=== PATIENT | female | born 1985 | race Caucasian/White ===

== ENCOUNTER → 2023-02-21 09:20 | Outpatient (CLI) | payer OTHER, SELFPAY ==
--- NOTE | ~2023-02-21 | CT_ITS ---
CT of the Abdomen and Pelvis: Indication: Renal cyst Technique: 2.5 mm axial scans were obtained through the abdomen and pelvis prior to and following in travenous administration of 100 cc of Omnipaque 350. Dose reduction technique was used on this scan b y utilizing automated exposure control and iterative reconstruction technique. The dose-length produc t (DLP) was 618.12 mGy-cm. Findings: Scans through the lung bases are unremarkable. There is an 11 mm hepatic lobe lesion, hypodense on precontrast images, with diffuse postcontrast enh ancement, suggestive of flash filling hemangioma. The spleen, pancreas, gallbladder, adrenals and rig ht kidney are within normal limits. There is a 9 mm left renal cyst, with probable tiny calcification /stone within the cyst. No evidence of aortic aneurysm. No lymphadenopathy. No bowel obstruction or bowel wall thickening. There is no evidence to suggest acute appendicitis. Images through the pelvis were performed. Urinary bladder unremarkable. 2.2 cm right adnexal cyst pre sent. No other adnexal mass seen. No ascites. Impression: 9 mm left renal cyst with tiny calcification/stone within the cyst. 11 mm probable flash filling hepatic hemangioma. Reviewed, dictated and finalized at [facility]. E DELIVERY SUPERVISOR Impression: 9 mm left renal cyst with tiny calcification/stone within the cyst. 11 mm probable flash filling hepatic hemangioma.
== END ==
DX: N28.1 Cyst of kidney, acquired (principal); K76.9 Liver disease, unspecified
CPT/HCPCS: 74178; Q9967

== ENCOUNTER 2024-02-25 14:55 | Outpatient (CLI) | payer OTHER, SELFPAY ==
--- NOTE | ~2024-02-25 | MM_ITS ---
EXAMINATION: MM screening lizzie BI w desire HISTORY: Screening mammogram TECHNIQUE: Craniocaudal and mediolateral oblique 3-D tomosynthesis images were obtained and synthetic 2-D images were generated. CAD analysis was submitted and interpreted. COMPARISON: No prior mammogram is available for comparison at this institution. BREAST PARENCHYMAL COMPOSITION:Dense: The breasts are extremely dense, which lowers the sensitivity o f mammography. FINDINGS: No suspicious mass, calcification, or architectural distortion are identified in either carol ast to suggest malignancy. There has been no suspicious interval change. IMPRESSION: No mammographic evidence of malignancy. Recommend routine screening mammography in one year. BI-RADS Category 1: Negative Reviewed, dictated and finalized at location . RVOIR ENGINEER
== END 2024-02-25 14:56 | disposition home or self-care (01) ==
LOC: ANHIMG 14:56
PROVIDERS: Visit Provider Obstetrics & Gynecology
DX: Z12.31 Encounter for screening mammogram for malignant neoplasm of breast (principal)
CPT/HCPCS: 77063; 77067

== ENCOUNTER 2024-04-27 08:46 | Outpatient (CLI) | payer OTHER, SELFPAY ==
--- NOTE | ~2024-04-27 | MR_ITS ---
EXAMINATION: MR abdomen wo/w con DATE: 04/27/2024 09:42 INDICATION: Renal cyst. TECHNIQUE: Magnetic resonance imaging (MRI) of the abdomen was performed without and with 12 mL Multi Andria intravenous contrast. COMPARISON: CT abdomen and pelvis 02/21/2023 FINDINGS: There is a stable 10 mm hyperenhancing mass in right hepatic lobe, likely a hemangioma. The gallbladd er, spleen, pancreas, adrenal glands, and right kidney are normal. There is an 8 mm cyst in left kidn ey. The prior CT demonstrated thin wall calcification. There are no dilated loops of bowel. There are no pathologically enlarged lymph nodes. There is no ascites. IMPRESSION: 1. Benign 8 mm Bosniak II cystic lesion of left kidney, stable from 02/21/2023. Reviewed, dictated and finalized at location B. R HELPER
== END 2024-04-27 08:47 | disposition home or self-care (01) ==
LOC: MICIMG 08:47
PROVIDERS: Visit Provider Urology
DX: N28.1 Cyst of kidney, acquired (principal)
CPT/HCPCS: 74183; A9577

== ENCOUNTER 2025-03-09 14:16 | Outpatient (CLI) | payer OTHER, SELFPAY ==
--- NOTE | ~2025-03-09 | MM_ITS ---
EXAMINATION: MM screening lizzie BI w desire HISTORY: Screening. TECHNIQUE: Craniocaudal and mediolateral oblique 3-D tomosynthesis images were obtained and synthetic 2-D images were generated. CAD analysis was submitted and interpreted. COMPARISON: 2023 BREAST PARENCHYMAL COMPOSITION: Dense: The breasts are heterogeneously dense FINDINGS: No suspicious masses are seen. There are no suspicious calcifications. No unexplained architectural distortion is seen. There are no skin or nipple abnormalities identified. There is no adenopathy seen on the images submitted. IMPRESSION: No mammographic evidence to suggest malignancy is seen. The patient may return to screening mammography as per ACR guidelines. BI-RADS 1 - Negative. Reviewed, dictated and finalized at location B. T SPECIALIST
--- OUTSIDE RECORDS SUMMARY | 2025-03-09 15:33 | XMS_ITS | Encounter Summary ---
Author Organization [facility] - [facility] Address [address] [place] [address] Care Team Providers Care Shape Carver Name Role Phone Christi Rader [facility] Primary Care Provider + Encounter Details Date Type Department Care Team (Late st Contact Info) Description 08/09/2022 [place] [address] [place] [address] [place], [facility] Provider Denise notes Social History Tobacco Use Types Packs/Day Years Used Date Smoking Tobacco: Never Smokeless Tobacco: Never Alcohol Use Standard Drinks/Week Comments Yes 0 (1 standard drink = 0.6 oz pur e alcohol) socially AUDIT-C Answer Date Recorded Frequency of Alcohol Consumption Never 10/17/2018 Average Number of Drinks Not on file 019 Frequency of Binge Drinking Not on file 10/05 PHQ-2 Answer Date Recorded Patient Health Questionnaire-2 Score 0 08/05/2022 Comments No Sex and Gender Information Value Date Recorded Sex Assigned at Not on file Legal Sex Female 9:56 PM CDT Gender Identity Not on file Sexual Orientation Not on file COVID-19 Exposure Response Date Recorded In the last 10 days, have yo u been in contact with someone who was confirmed or suspected to have Coronavirus/COVID-19? No / Unsure 08/05/2022 2:00 PM CDT documented as of this encounter Plan of Treatment Not on file documented as of this encounter Visit Diagnoses Not on filedocumented in this encounter Additional Health Concerns Assessment Noted Time PHQ-9 Depression Total Score: 0 05/25/19 22 10:59 AM GROUND TRANSPORTATION OPERATOR documented as of this encounter Care Teams Shape Carver Relationship Specialty Start Date End Date Christi Rader, ENGINEERED WOOD DESIGNER- [address] [address] PCP - General NURSE PRACTITIONER 01/22/21 documented as of this encounter
--- OUTSIDE RECORDS SUMMARY | 2025-03-09 15:33 | XMS_ITS | Clinical Summary ---
Author Organization [facility] Address [address] [place] [address] Care Team Providers Care Cpht Name Role Phone Christi Rader [facility] Primary Care Provider + Allergies No known active allergies Medications azithromycin (ZITHROMAX Z-NICHO) 250 MG tabletIndicatio ns:Acute pneumonia Take Two tablets on first day, then on tablet QD x 4 additional days 6 tablet 4 Active Active Problems Problem Noted Date Diagnosed Date SI (sacroiliac) joint inflammation 05/11/2020 Resolved Problems Problem Noted Date Diagnosed Date Resolved Date Known health problems: none 01/28/2020 01/31/2020 Encounter for preventive health examination 09/20/2013 12/17/2019 Immunizations Immunization Administration Dates Next Due Dtap 10/16/2014 Fluzone 6 Months+ Quad (0.5 mL Prefilled Syringe) 12/06/2019 Influenza (Generic) 03/14/2016 Influenza Adult (Generic) 12/25/2021,,01/04/2019,2014 Tdap (Adacel) 02/13/2022 Family History Medical History Relation Comments Dementia Father Heart Disease Father Alzheimers Maternal Grandfather Cancer Mother hairy cell [facility], ovarian Alzheimers Paternal Grandfather heart murmur Sister Relation Status Comments Father Alive Maternal Grandfather Mother Alive Paternal Grandfather Sister Alive Social History Tobacco Use Types Packs/Day Years Used Date Smoking Tobacco: Never Smokeless Tobacco: Never Tobacco Cessation:Counseling Given: No Alcohol Use Standard Drinks/Week Comments Yes 0 (1 standard drink = 0.6 oz pur e alcohol) socially AUDIT-C Answer Date Recorded Frequency of Alcohol Consumption Never 10/17/2018 Average Number of Drinks Not on file 019 Frequency of Binge Drinking Not on file 10/05 PHQ-2 Answer Date Recorded Patient Health Questionnaire-2 Score 0 01/05/2024 Comments No Sex and Gender Information Value Date Recorded Sex Assigned at Not on file Legal Sex Female 9:56 PM CDT Gender Identity Not on file Sexual Orientation Not on file 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 Not on ari e Not on file Last Filed Vital Signs Vital Sign Reading Time Taken Comments Blood Pressure 138/83 01/05/2024 9:39 AM CDT Pulse 84 01/05/2024 9:39 AM CDT Temperature 36.7 C (98.1 F) 01/05/2024 9:39 AM CDT Respiratory Rate 18 01/05/2024 9:39 AM CDT Oxygen Saturation 99% 01/05/2024 9:39 AM CDT Inhaled Oxygen Concentration - - Weight 63.5 kg (140 lb) 01/05/2024 9:39 AM CDT Height 167.6 cm (5' 6) 01/05/2024 9:39 AM CDT Body Mass Index 22.6 01/05/2024 9:39 AM CDT Plan of Treatment Health Maintenance Due Date Last Done Comments Hepatitis C 2002 Hepatitis B Vaccines (1 of 3 - 19+ 3-dose series) 12/13/2003 HPV Vaccines (1 - 3-dose SCDM series) 12/13/2011 Annual Physical 03/03/2024 03/03/2023, 02/05, 01/28/2020, Additional history exists PHQ-2 (Physician [place]) 04/07/2024 01/05/2024 COVID-19 Vaccine ( season) 2024 08/05/2020, 07/17/2020, 06/24/2020 Mammogram Screening 2024 03/15/2022, 03/09/2021, 04/01/2019 Influenza Adult (#1) 2025 12/25/2021, 01/19/2021, 12/06/2019, Additional history exists Cervical Cancer Screening Pap Smear (Age 30 to 64) Every 3 Years 03/03/2026 03/03/2023 Cervical Cancer Screening Pap with HPV Testing (Age 30 to 64) Every 5 Years 03/03/2028 03/03/2023, 03/05/2018, 03/05/2018 Cervical Cancer Screening with HPV 03/03/2028 DTaP, Tdap and Td Vaccines (4 - Td or Tdap) 02/14/2032 02/13/2022, 08/14/2016, 10/16/2014 Hepatitis A Vaccines Aged Out No long er eligible based on patient's age to complete this topic Meningococcal B Vaccine Aged Out No l onger eligible based on patient's age to complete this topic Meningococcal Vaccine Aged Out No zach supriya eligible based on patient's age to complete this topic Pneumococcal Vaccine: Pediatrics (0 to 5 Years) and At-Risk Patients (6 to 49 Years) Aged Out No longer eligible based on patient's age to complete this topic RSV Immunizations Under 20 Months Aged Out No longer eligible based on patient's age to complete this topic Medical Devices Implanted Type Area Nursing Assoc Device Identifier Shelf Expiration Date Model / Serial / Lot Screw Screw Left: Knee Procedures Procedure Name Priority Date/Time Associated Diagnosis Comments HUMAN PAPILLOMAVIRUS, HIGH-RISK TYPES Routine 03/03/2023 12:00 PM SURVEYOR CHAIN HELPER CYTOPATH CERV/VAG THIN LAYER Routine 03/03/2023 12:00 AM SURVEYOR CHAIN HELPER MG DIAG W DOUG BILAT DIGI Routine 03/15/2022 10:34 AM SURVEYOR CHAIN HELPER Pain in left axilla Pain in right axilla from Last 3 Months or Most Recently Relevant to Health Maintenance Results * HUMAN PAPILLOMAVIRUS, HIGH-RISK TYPES (03/03/2023 12:00 PM SURVEYOR CHAIN HELPER) SPEC DESCRIPTION CERVIX 03/05/20 8:29 AM SURVEYOR CHAIN HELPER [facility] HPV DNA HIGH RISK NEGATIVE NEGATIVE 03/05/2023 11:56 PM SURVEYOR CHAIN HELPER [facility] Comment:SEE CYTOLOGY REPORT 03/03/2023 12:0 0 PM SURVEYOR CHAIN HELPER [facility]/CYTOLOGY ORDER AILYN Final Result [facility] ([facility] [address] [place] [address], * Cytopath Cerv/Vag Thin Layer (03/03/2023 12:00 AM SURVEYOR CHAIN HELPER) THIN PREP PAP [facility] [address] [place] [address] Department of Pathology Pathology Report CERVICAL/VAGINAL PAP SMEAR REPORT Name: FELICIA CHARLES Age: 9 1985 (Age: 37) Location: Sex: F Collected Date: 03/03/2023 [facility] #: [id number] Date Received: 03/05/2023 Date Reported: 03/06/2023 Provider: CHRISTI MOHR INTERPRETATION CERVICAL/ENDOCERVI DENNY: SATISFACTORY FOR EVALUATION. ENDOCERVICAL/TRANS FORMATION ZONE COMPONENT ABSENT. NEGATIVE FOR INTRAEPITHELIAL LESION OR MALIGNANCY. NEGATIVE FOR HIGH RISK HPV. The FDA approved Aptima HPV assay is an in vitro nucleic acid amplification test for the qualitative detection of E6/E7 viral messenger RNA (mRNA) from 14 high-risk types of human papillomavirus (HPV) in cervical specimens. The high-risk HPV types detected by the assay include: 16,18,31,33,35,39, 45,51,52,56,58,59, 66, and 68. Electronically Signed Out By CHELSEY Nelson (ASCP) CLINICAL HISTORY Z12.4 SCREENING PAP ThinPrep Pap Test with screening HR HPV testing requested, with reflex HPV 16/18 genotyping on negative cytology, positive HR HPV Date of Last Menstrual Period: REGULAR MENSES Menstrual Status: Regular SPECIMEN SUBMITTED CERVICAL/ENDOCERVI DENNY Specimen Received:1 Thin Prep Vial, Image Assisted Pap (SMD) Please note: The Pap smear is not a diagnostic test. It is a screening test. Negative results on combined screening (Pap test and HPV-DNA) have a high negative predictive value (99.1-100 percent) for cervical cancer. The pap test is not effective in detecting cervical adenocarcinoma. [facility] 03/03/2023 03/05/2023 7:0 0 AM SURVEYOR CHAIN HELPER Comment:CERVICAL/ENDOCERVICA L us Christi Rader SENIOR NET C DEVELOPER-BC PATHOLOGY/CYTOLOGY ORDER AILYN Final Result [facility] [address] [place] [id number], [place] [phone] * MG DIAG W DOUG YESI DIGI (03/15/2022 10:34 AM SURVEYOR CHAIN HELPER) Anatomical Region Laterality Modality Breast Bilateral Mammography, Rad iographic Imaging 03/15/2022 10:5 9 AM SURVEYOR CHAIN HELPER Narrative 03/15/2022 11:02 AM SURVEYOR CHAIN HELPER Examination: Digital bilateral diagnostic mammogram with 3-D tomography and right breast ultrasound [id number] Exam Date/Time: 03/15/2022 9:23 AM Reason For Exam: family history of ovarian cancer, axillary pain Comparison: 03/09/2021, 04/01/2019 Technique: Digital diagnostic mammography of both breasts was performed with 3-D tomography. This study was read with the assistance of a computer-aided detection system. And right breast ultrasound Tissue density: The breast tissue is heterogeneously dense, which may obscure small masses. Findings: There is no new area of focal asymmetry, dominant mass lesion, area of skin thickening, or cluster of suspicious appearing calcifications in either breast to suggest malignancy. Normal-appearing lymph node in the right axilla by ultrasound is seen. This measures 0.98 x 0.95 x 0.57 cm. Cortex measures 2 mm. No additional imaging necessary. =====IMPRESSION:===== No correlate for history of breast pain on mammogram or ultrasound. Lack of correlate should not delay biopsy or other further evaluation if clinically indicated. Assessment: ACR BI-RADS 2 - BENIGN FINDING(S) Recommendation: 1Per clinical decision Right Comments: Patient was informed of these findings, including the need for reconsultation with referring clinician; by me, in person, at time of present study. Notification was performed in the presence of Haylie survey technologist. Ordered By: CHRISTI RADER Interpreted By: Clark Hamilton MD, 03/15/2022 10:59 AM Christi Rader SENIOR NET C DEVELOPER-BC MAMMO Final Re sult from Last 3 Months or Most Recently Relevant to Health Maintenance Insurance [facility] Advance Directives * Full Code (Latest Code Status on File) Date Activated Date Inactivated Comments 01/26/2019 9:44 AM 01/26/2019 6:44 PM Care Teams Cpht Relationship Specialty Start Date End Date Christi Rader, SENIOR NET C DEVELOPER-BC [address] [place] [address] PCP - General NURSE PRACTITIONER 01/22/21
--- OUTSIDE RECORDS SUMMARY | 2025-03-09 15:33 | XMS_ITS | Encounter Summary ---
Author Organization [facility] Address [address] [place] [address] Care Team Providers Care Electric Sign Assembler Name Role Phone Christi Rader [facility] Primary Care Provider + Encounter Details Date Type Department Care Team (Late st Contact Info) Description 03/14/2021 PlayerDuel Message [facility] Family & Internal Medicine [address] [address] [facility], [facility] Provider Preventive Outreach Social History Tobacco Use Types Packs/Day Years Used Date Smoking Tobacco: Never Smokeless Tobacco: Never Alcohol Use Standard Drinks/Week Comments Yes 0 (1 standard drink = 0.6 oz pur e alcohol) socially AUDIT-C Answer Date Recorded Frequency of Alcohol Consumption Never 10/17/2018 Average Number of Drinks Not on file 019 Frequency of Binge Drinking Not on file 10/05 PHQ-2 Answer Date Recorded PHQ-2 Score - If the patient scores above 3, please move on to questions 3-9 0 07/28/2020 Comments No Sex and Gender Information Value Date Recorded Sex Assigned at Not on file Legal Sex Female 9:56 PM CDT Gender Identity Not on file Sexual Orientation Not on file COVID-19 Exposure Response Date Recorded In the last month, have you been in contact with someone who was confirmed or suspected to have Coronavirus / COVID-19? No / Unsure 03/09/2021 10:53 AM BINGO USHER documented as of this encounter Plan of Treatment Not on file documented as of this encounter Visit Diagnoses Not on filedocumented in this encounter Care Teams Electric Sign Assembler Relationship Specialty Start Date End Date Christi Rader, [facility]- [address] [place] [address] PCP - General NURSE PRACTITIONER 01/22/21 documented as of this encounter
--- OUTSIDE RECORDS SUMMARY | 2025-03-09 15:33 | XMS_ITS | Clinical Summary ---
Author Organization [facility] Address [address] [place] [address] Care Team Providers Care Hand Candy Molder Name Role Phone Mariaa Schwartz MD Unavailable [phone] No, Physician Primary Care Provider [phone] Allergies No known active allergies Medications azithromycin (ZITHROMAX) 250 mg tablet Take Two tablets on first day, then on tablet QD x 4 additional days 4 Active cyclobenzaprine (FLEXERIL) 10 mg tablet as needed 3 Active ketorolac (TORADOL) 10 mg tablet as needed 3 Active cephalexin (KEFLEX) 500 mg capsule TAKE 1 CAPSULE BY MOUTH 4 TIMES A DAY FOR 5 DAYS 5 Active Active Problems Problem Noted Date Diagnosed Date NYDIA III (cervical intraepithelial neoplasia III) 12/08/2024 Cyst of right ovary 07/23/2024 SI (sacroiliac) joint inflammation 05/11/2020 Encounters Date Type Department Care Team Description 02/22/2025 Telephone [facility] Medicine Obstetrics and Gynecology [address] [place] [address] Sheridan Brooks, MEDHAT 02/17/2025 Orders Only [facility] Medicine Obstetrics and Gynecology [address] [place] [address] Sheridan Brooks, RN Cyst of right ovary (Primary Dx); Abdominal bloating 02/16/2025 Results Follow-Up [facility] Medicine Obstetrics and Gynecology [address] [place] [address] Celeste Arzate MD CBC with auto differential, Comprehensive metabolic panel, Thyroid Function [place], Additional followed-up results: 2 12/13/2024 Orders Only [facility] Obstetrics and Gynecology [address] [place] [address] [place] [address] Sheridan Brooks RN Cyst of right ovary (Primary Dx) 12/10/2024 Telephone [facility] Obstetrics and Gynecology [address] [place] [address] [place] [address] Celeste Arzate MD Surgery 12/08/2024 11:45 AM CDT Office Visit [facility] Obstetrics and Gynecology [facility] [address] [place] [address] [place] [address] Celeste Arzate MD Cyst of right ovary (Primary Dx) 12/08/2024 10:30 AM CDT - 12/08/2024 11:59 PM CDT Hospital Encounter [facility] - Ultrasound [address] [facility], [address] [place] [address] Cyst of right ovary Discharge Disposition: Discharge to home or self care 12/08/2024 Orders Only [facility] Obstetrics and Gynecology [facility] [address] [place] [address] [place] [address] Sheridan Brooks RN Cyst of right ovary (Primary Dx); Perimenopause from Last 3 Months Immunizations Immunization Administration Dates Next Due DTaP 10/16/2014 Influenza, Quadrivalent, Kristina l Culture-based MDCK, Preservative Free, Antibiotic Free, Intramuscular 12/09/2021,01/13/2021 Influenza, Quadrivalent, Spl it, Preservative Free, Intramuscular 12/06/2019,01/01/2019 Influenza, Trivalent, Preser vative Free, Intramuscular 03/14/2016 Influenza, Unspecified 12/25/2021,2020,01/04/2019,03/14,01/22/2015 Tdap 02/13/2022,08/14/2016 Surgical History Surgery Date Site/Laterality Comments KNEE SURGERY OOPHERECTOMY Family History Medical History Relation Name Comments Leukemia Father Ovarian cancer Father Relation Name Status Comments Father Social History Tobacco Use Types Packs/Day Years Used Date Smoking Tobacco: Never Tobacco Cessation:Counseling Given: Not Answered Comments Unknown Sex and Gender Information Value Date Recorded Sex Assigned at Not on file Legal Sex Female 3:19 PM BATTERBOARD SETTER Gender Identity Not on file Sexual Orientation Not on file Last Filed Vital Signs Vital Sign Reading Time Taken Comments Blood Pressure 102/57 12/08/2024 11:38 AM CDT Pulse 55 12/08/2024 11:38 AM CDT Temperature 37 C (98.6 F) 12/08/2024 11:38 AM CDT Respiratory Rate 16 12/08/2024 11:3 8 AM CDT Oxygen Saturation 98% 12/08/2024 11: 38 AM CDT Inhaled Oxygen Concentration - - Weight 64.8 kg (142 lb 12.8 oz) 025 11:38 AM CDT Height 170 cm (5' 6.93) 12/08/2024 11: 38 AM CDT Body Mass Index 22.41 12/08/2024 11:38 AM CDT Plan of Treatment Health Maintenance Due Date Last Done Comments Depression Screening 1984 Hepatitis C Screening 1984 Varicella Vaccines (1 of 2 - 13+ 2-dose series) 1997 Hepatitis B Screening 2002 Regular Well Visit/Exam 18-64 2002 HPV Vaccines (1 - 3-dose SCDM series) 12/13/2011 Breast Cancer Screening-Mammogram 03/15/2023 03/15/2022, 03/09/2021, 04/01/2019 Cervical Cancer Screening 03/03/2024 03/03/2023 Covid-19 Vaccine ( season) 2024 07/17/2020, 06/24/2020 Influenza Vaccine (#1) 2024 2, 12/09/2021, 01/19/2021, Additional history exists DTaP/Tdap/Td Vaccine (4 - Td or Tdap) 02/14/2032 02/13/2022, 08/14/2016, 10/16/2014 Pneumococcal vaccine <65 Aged Out No longer eligible based on patient's age to complete this topic Procedures Procedure Name Priority Date/Time Associated Diagnosis Comments ESTRADIOL Routine 02/15/2025 12:31 PM BATTERBOARD SETTER Cyst of right ovary Perimenopause FOLLICLE STIMULATING HORMONE Routine 02/15/2025 12:31 PM BATTERBOARD SETTER Cyst of right ovary Perimenopause THYROID FUNCTION CASCADE Routine 02/15/2025 12:30 PM BATTERBOARD SETTER Cyst of right ovary COMPREHENSIVE METABOLIC PANEL Routine 02/15/2025 12:30 PM BATTERBOARD SETTER Cyst of right ovary CBC WITH AUTO DIFFERENTIAL Routine 02/15/2025 12:30 PM BATTERBOARD SETTER Cyst of right ovary US PELVIS COMPLETE Routine 12/08/2024 10 :38 AM CDT Cyst of right ovary from Last 3 Months Results * Estradiol (02/15/2025 12:31 PM BATTERBOARD SETTER) Pathologist [facility] Estradiol 133 pg/mL [facility] Comment: Reference Range Female: Follicular Phase: 30-144 Mid-Cycle: 64-357 Luteal Phase: 56-214 Postmenopausal: < or = 31 Reference range established on post-pubertal patient population. No pre-pubertal reference range established using this assay. For any patients for whom low Estradiol levels are anticipated (e.g. males, pre-pubertal children and hypogonadal/post-menopausal females), the [facility] Estradiol, Ultrasensitive, LCMSMS assay is recommended (order code 00242). Please note: patients being treated with the drug fulvestrant (Faslodex(R)) have demonstrated significant interference in immunoassay methods for estradiol measurement. The cross reactivity could lead to falsely elevated estradiol test results leading to an inappropriate clinical assessment of estrogen status. [employer] order code [id number], Ultrasensitive LC/MS/MS demonstrates negligible cross reactivity with fulvestrant. Blood 02/15/2025 12:3 1 PM BATTERBOARD SETTER 02/15/2025 12:32 PM BATTERBOARD SETTER Celeste Arzate MD LAB BLOOD ORDERABLES Fin al Result Performing Organization Address [facility] Co de Phone Number [facility] [address] [facility] [place] [address] * Follicle stimulating hormone (02/15/2025 12:31 PM BATTERBOARD SETTER) FSH 3.6 mIU/mL [facility] Comment: Reference Range Follicular Phase 2.5-10.2 Mid-cycle Peak 3.1-17.7 Luteal Phase 1.5- 9.1 Postmenopausal 23.0-116.3 Blood 02/15/2025 12:3 1 PM BATTERBOARD SETTER 02/15/2025 12:32 PM BATTERBOARD SETTER Celeste Arzate MD LAB BLOOD ORDERABLES Fin al Result Performing Organization Address [facility] de Phone Number [facility] [place] [address] [place] [address] * Thyroid Function [place] (02/15/2025 12:30 PM BATTERBOARD SETTER) Pathologist [facility] TSH 1.25 mIU/L [facility] Comment: Reference Range > or = 20 Years 0.40-4.50 Ranges First trimester 0.26-2.66 Second trimester 0.55-2.73 Third trimester 0.43-2.91 Blood 02/15/2025 12:3 0 PM BATTERBOARD SETTER 02/15/2025 12:32 PM BATTERBOARD SETTER Narrative [facility] - 02/16/2025 6:34 AM BATTERBOARD SETTER AN UPDATE OR CORRECTION HAS BEEN MADE TO NAME Celeste Arzate MD LAB BLOOD ORDERABLES Fin al Result Performing Organization Address [facility] Co de Phone Number [facility] [address] [place] [address] * CBC with auto differential (02/15/2025 12:30 PM BATTERBOARD SETTER) Pathologist [facility] WBC 6.2 3.8 - 10.8 Thousand/u L [facility] RBC, POC 4.86 3.80 - 5.10 Million/uL [facility] Hgb 14.0 11.7 - 15.5 g/dL [facility] Hct 42.8 35.0 - 45.0 % [facility] MCV 88.1 80.0 - 100.0 fL [facility] MCH 28.8 27.0 - 33.0 pg [facility] MCHC 32.7 32.0 - 36.0 g/dL [facility] Comment: For adults, a slight decrease in the calculated MCHC value (in the range of 30 to 32 g/dL) is most likely not clinically significant; however, it should be interpreted with caution in correlation with other red cell parameters and the patient's clinical condition. Rdw 12.7 11.0 - 15.0 % [facility] Platelets 229 140 - 400 Thousand/u L [facility] MPV 10.9 7.5 - 12.5 fL [facility] Neutrophils, abs 3,658 1,500 - 7,800 cells/uL [facility] Lymphocytes, abs 1,984 850 - 3,900 cells/uL [facility] Monocyte abs 453 200 - 950 cells/uL [facility] Eosinophils, abs 68 15 - 500 cells/uL [facility] Basophils, abs 37 0 - 200 cells/uL [facility] Neutrophils 59 % [facility] Lymphocyte pct 32.0 % [facility] Monocytes 7.3 % [facility] Eosinophils 1.1 % [facility] Basophils 0.6 % [facility] Blood 02/15/2025 12:3 0 PM BATTERBOARD SETTER 02/15/2025 12:32 PM BATTERBOARD SETTER Narrative [facility] - 02/16/2025 6:34 AM BATTERBOARD SETTER AN UPDATE OR CORRECTION HAS BEEN MADE TO NAME us Celeste Arzate MD LAB BLOOD ORDERABLES Fin al Result [facility] [address] [address] * Comprehensive metabolic panel (02/15/2025 12:30 PM BATTERBOARD SETTER) Glucose 76 65 - 99 mg/dL [facility] Comment: Fasting reference interval BUN 9 7 - 25 mg/dL [facility] Creatinine 0.69 0.50 - 0.99 mg/dL [facility] eGFR 112 > OR = 60 mL/min/1.7 3m2 [facility] BUN/creat ratio SEE NOTE: 6 - 22 (calc) [facility] Comment: Not Reported: BUN and Creatinine are within reference range. Sodium 137 135 - 146 mmol/L [facility] Potassium, pl 3.6 3.5 - 5.3 mmol/L [facility] Chloride 103 98 - 110 mmol/L [facility] CO2 26 20 - 32 mmol/L [facility] Calcium 9.2 8.6 - 10.2 mg/dL [facility] Protein, sr 7.0 6.1 - 8.1 g/dL [facility] Albumin 4.6 3.6 - 5.1 g/dL [facility] GLOBULIN 2.4 1.9 - 3.7 g/dL (calc) [facility] Alb/glob ratio 1.9 1.0 - 2.5 (calc) [facility] Bilirubin, total 0.5 0.2 - 1.2 mg/dL [facility] Alk phos 34 31 - 125 U/L [facility] AST 17 10 - 30 U/L [facility] ALT (SGPT) 12 6 - 29 U/L [facility] Blood 02/15/2025 12:3 0 PM BATTERBOARD SETTER 02/15/2025 12:32 PM BATTERBOARD SETTER Narrative [facility] - 02/16/2025 6:34 AM BATTERBOARD SETTER AN UPDATE OR CORRECTION HAS BEEN MADE TO NAME us Celeste Arzate MD LAB BLOOD ORDERABLES Fin al Result [facility] [address] [address] [address] * US Pelvis Complete (12/08/2024 10:38 AM CDT) [place] No free fluid visualized [facility] Endometrial Thickness 7.8 mm&millim eters [facility] Anatomical Region Laterality Modality Pelvis N/A Ultrasound 12/08/2024 10:4 0 AM CDT Impressions 12/08/2024 1:33 PM CDT 38 yo who presents for pelvic US in setting of family history of ovarian cancer. 1. The uterus is normal in size and contour. The endometrium measures 7.8 mm. 2. The right ovary is normal in appearance but is mildly enlarged which may suggest polycystic ovaries. The left ovary is surgically absent per report. There are no adnexal masses. 3. There is no pelvic free fluid. Narrative Procedure Note Alejandra Contreras MD - 12/08/2024 IMPRESSION: 38 yo who presents for pelvic US in setting of family history of ovariancancer. 1. The uterus is normal in size and contour. The endometrium measures 7.8mm. 2. The right ovary is normal in appearance but is mildly enlarged whichmay suggest polycystic ovaries. The left ovary is surgically absent perreport. There are no adnexal masses. 3. There is no pelvic free fluid. Celeste Arzate MD IM US PROCEDURES Final Result from Last 3 Months Insurance [id number] OPEN ACCESS [facility] OPEN ACCESS Care Teams Hand Candy Molder Relationship Specialty Start Date End Date No, Physician PCP - General 09/08/24 Mariaa Schwartz MD [address] [facility] [address] [place] [address] Referring Physician Obstetrics and Gynecology 08/03/24
--- OUTSIDE RECORDS SUMMARY | 2025-03-09 15:33 | XMS_ITS | Encounter Summary ---
Author Organization [facility] Address [facility] [facility] [place] [address] Care Team Providers Care Chemical Tester Name Role Phone Dior Christi Isela BLINTZE ROLLER-LINE PAINTING MACHINE OPERATOR Primary Care Provider Encounter Details Date Type Department Care Team (Late st Contact Info) Description 10/23/2022 Lab Requisition [facility] - DermPath Lab [address] [facility] [place] [address] Leanne Ya MD [address] [facility] [address] DEPT [place] [address] Social History Tobacco Use Types Packs/Day Years Used Date Smoking Tobacco: Never Assessed Comments Unknown Sex and Gender Information Value Date Recorded Sex Assigned at Not on file Legal Sex Female 9:40 AM CDT Gender Identity Not on file Sexual Orientation Not on file documented as of this encounter Plan of Treatment Not on file documented as of this encounter Procedures Procedure Name Priority Date/Time Associated Diagnosis Comments DERMATOPATHOLOGY Routine 10/23/2022 9:25 AM CDT documented in this encounter Results * DERMATOPATHOLOGY (10/23/2022 9:25 AM CDT) Case Report Dermatopathology Report Case: [id number] Authorizing Provider: Leanne Ya MD Collected: 10/23/2022 09:25 AM Ordering Location: [facility] DermPath Lab Received: 10/24/2022 07:49 AM Pathologist: Maggie Stapleton MD Specimen: Skin, left abdomen 12:47 PM CDT DERMATOPATHOLOGY LABORATORY Final Diagnosis Specimen A. 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 The specimen consists of a shave biopsy measuring 4x4x1 mm. Jar 0. 12:[address] [facility] DERMATOPATHOLOGY LABORATORY Microscopic Description Specimen A. SKIN, left abdomen: This is a compound nevus. There is a lentiginous proliferation of melanocytes between nevus nests of cells along the dermal-epidermal junction. There is underlying lamellar fibroplasia of the papillary dermis. The intradermal component is bland in appearance and matures with depth. (Compound Fco's Nevus) This lesion is present at the margin of the specimen. Sections show abundant melanin within melanophages around the superficial vascular plexus. COMMENT: If this specimen is sampled from a larger lesion, these findings may not be national sales representative of the entire lesion. Clinicopathologic correlation is recommended. 12:[address] [facility] DERMATOPATHOLOGY LABORATORY Disclaimer An external and internal positive and negative controls are appropriate for the histochemical, immunohistochemical and immunofluorescence stain(s) in this case (if any), except where stated explicitly. The performance characteristics of the stain(s) cited in this report were developed and its performance characteristic determined by the Dermatopathology Laboratory at [facility], directed by Dr. Cullen Zamarripa. These tests need not be, and therefore are not, approved by the [place] Food and Drug Administration. The tests are used for clinical purposes. Billing Codes Specimen Charges Stain Charges 62046 1 3 12:47 PM CDT DERMATOPATHOLOGY LABORATORY Embedded Images 12:47 PM CDT DERMATOPATHOLOGY LABORATORY Pathology/Cytolo gy TISSUE SPECIMEN FROM SKIN / Unknown 10/23/2022 9:25 AM CDT 10/24/2022 7:49 AM CDT us Leanne Ya MD LAB - PATHOLOGY/CYTOLOGY ORD ERABLES Final Result DERMATOPATHOLOGY LABORATORY [facility] - Department of Dermatology [facility] [address] [place] [address], [address] [phone] documented in this encounter Visit Diagnoses Not on filedocumented in this encounter Care Teams Chemical Tester Relationship Specialty Start Date End Date Christi Rader, BLINTZE ROLLER-LINE PAINTING MACHINE OPERATOR [address] [facility], [address] [place] [address] PCP - General Nurse Practitioner 05/01/23 documented as of this encounter
--- OUTSIDE RECORDS SUMMARY | 2025-03-09 15:33 | XMS_ITS | Clinical Summary ---
Author Organization [facility] Address [address] [place] [address] Care Team Providers Care Kiln Puller Name Role Phone Christi Rader APRN-CORE JAVA ENGINEER Primary Care Provider Source Comments [facility],non-owned Affiliates and Associated Physician Practices is amultiple site organization consisting of ambulatory clinics and hospital sitesin [place], [place]. This disclosure is being madepursuant to the Care Everywhere program and may not contain all information available regarding this patient. Last updated 17.[facility] Allergies No known active allergies Medications * Be aware that medications may not be up to date on this document. Alwaysverify current medications with the patient. cyclobenzaprine (Flexeril) 10 MG tablet as needed 08/05/2022 Active ketorolac (Toradol) 10 MG tablet as needed 08/05/2022 Active Social History Tobacco Use Types Packs/Day Years Used Date Smoking Tobacco: Never Smokeless Tobacco: Never Tobacco Cessation:Counseling Given: Not Answered Alcohol Use Standard Drinks/Week Comments Yes 0 (1 standard drink = 0.6 oz pur e alcohol) rare Comments Unknown Sex and Gender Information Value Date Recorded Sex Assigned at Not on file Legal Sex Female 9:40 AM CDT Gender Identity Not on file Sexual Orientation Not on file Last Filed Vital Signs Vital Sign Reading Time Taken Comments Blood Pressure 113/75 05/01/2023 11:10 AM HUMAN RESOURCES OPERATIONS SPECIALIST Pulse 83 05/01/2023 11:10 AM HUMAN RESOURCES OPERATIONS SPECIALIST Temperature 36.6 C (97.9 F) 05/01/2023 11:10 AM HUMAN RESOURCES OPERATIONS SPECIALIST Respiratory Rate - - Oxygen Saturation 99% 05/01/2023 11:10 AM HUMAN RESOURCES OPERATIONS SPECIALIST Inhaled Oxygen Concentration - - Weight 64.4 kg (142 lb) 05/01/2023 11:10 AM HUMAN RESOURCES OPERATIONS SPECIALIST Height 167.6 cm (5' 6) 05/01/2023 11:10 AM HUMAN RESOURCES OPERATIONS SPECIALIST Body Mass Index 22.92 05/01/2023 11:10 AM HUMAN RESOURCES OPERATIONS SPECIALIST Plan of Treatment Health Maintenance Due Date Last Done Comments LIPID TESTING 1984 MAMMOGRAM 1984 HIV SCREENING 12/13/1999 HEPATITIS C SCREENING 12/08/2002 DTAP/TDAP/TD VACCINES (1 - Tdap) 12/13/2003 HEPATITIS B VACCINE (1 of 3 - 19+ 3-dose series) 12/13/2003 HPV VACCINE (1 - 3-dose SCDM series) 12/13/2011 PAP with HPV 2014 DEPRESSION SCREENING 04/07/2024 COVID-19 VACCINE ( season) 2024 INFLUENZA VACCINE (#1) 2024 2, 01/19/2021, 12/06/2019, Additional history exists Cervical Cancer Screening 03/03/2026 PAP SMEAR 03/03/2026 03/03/2023, 03/03/2023 ZOSTER VACCINE (1 of 2) 2034 HIB VACCINE Aged Out No longer eligi ble based on patient's age to complete this topic MENINGOCOCCAL (Group B) VACCINE SHARED DECISION-MAKING Aged Out No longer eligible based on patient's age to complete this topic MENINGOCOCCAL GROUPS A/C/Y/W VACCINE Aged Out No longer eligible based on patient's age to complete this topic PNEUMOCOCCAL VACCINE Aged Out No long er eligible based on patient's age to complete this topic Goals Goal Patient Goal Type Associated Problems Recent Progress Patient-Stated? Author Medication Management General On track( 024 11:13 AM HUMAN RESOURCES OPERATIONS SPECIALIST) Miriam Dickerson, RN Note: Expected end date: ongoing Interventions: Take all medications as prescribed Let your doctor know right away about any changes in your medications Make sure to request a refill of your medication at least one week prior to your last dose Insurance [employer] Care Teams Kiln Puller Relationship Specialty Start Date End Date Christi Rader, PLACEMENT INTERVIEWER-CORE JAVA ENGINEER [address] [facility], [address] [place] [address] PCP - General Nurse Practitioner 05/01/23
--- OUTSIDE RECORDS SUMMARY | 2025-03-09 15:33 | XMS_ITS | Encounter Summary ---
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
--- OUTSIDE RECORDS SUMMARY | 2025-03-09 15:33 | XMS_ITS | Encounter Summary ---
Author Organization [facility] Address [address] [place] [address] Care Team Providers Care Contact Center Team Lead Name Role Phone Patrick Pitt MD Primary Care Provider U Sis Barba Primary Care Provider [phone] Scotty Narvaez DO Primary Care Provider Christi Rader [facility] Primary Care Provider + Encounter Details Date Type Department Care Team (Late st Contact Info) Description 10/23/2015 Abstract [facility] CONVERSION [address] [place] [address] , Isabel Bustillos MD Social History Tobacco Use Types Packs/Day Years Used Date Smoking Tobacco: Never Comments Unknown Sex and Gender Information Value Date Recorded Sex Assigned at Not on file Legal Sex Female 9:56 PM CDT Gender Identity Not on file Sexual Orientation Not on file documented as of this encounter Plan of Treatment Not on file documented as of this encounter Visit Diagnoses Not on filedocumented in this encounter Care Teams Contact Center Team Lead Relationship Specialty Start Date End Date Patrick Pitt MD PCP - General INTERNAL MEDICINE 10/17/18 01/06/19 Sis Valencia FNP [address] [place] [address] PCP - General Nurse Practitioner Family 01/07/1901/25 Scotty Narvaez DO [address] [place] [address] PCP - General FAMILY PRACTICE 01/15/21 01/21/21 Christi Rader, [employer]ELD [employer]IEF- [address] [place] [address] PCP - General NURSE PRACTITIONER 01/22/21 documented as of this encounter
--- OUTSIDE RECORDS SUMMARY | 2025-03-09 15:33 | XMS_ITS | Encounter Summary ---
Author Organization [facility] Address [address] [place] [address] Phone Care Team Providers Care Jig Boring Machine Set Up Operator Name Role Phone Mariaa Schwartz MD Unavailable [phone] No, Physician Primary Care Provider [phone] Encounter Details Date Type Department Care Team (Latest Contact Info) Description 02/16/2025 Results Follow-Up [facility] Medicine Obstetrics and Gynecology [address] [place] [address] [place] [address] Celeste Arzate MD [address] [place] [address] CBC with auto differential, Comprehensive metabolic panel, Thyroid Function [place], Additional followed-up results: 2 Social History Tobacco Use Types Packs/Day Years Used Date Smoking Tobacco: Never Comments Unknown Sex and Gender Information Value Date Recorded Sex Assigned at Not on file Legal Sex Female 3:19 PM PLATE HANGER Gender Identity Not on file Sexual Orientation Not on file documented as of this encounter Plan of Treatment Not on file documented as of this encounter Visit Diagnoses Not on filedocumented in this encounter Care Teams Jig Boring Machine Set Up Operator Relationship Specialty Start Date End Date No, Physician PCP - General 09/08/24 Mariaa Schwartz MD [address] [facility] [address] [place] [address] Referring Physician Obstetrics and Gynecology 08/03/24 documented as of this encounter
--- OUTSIDE RECORDS SUMMARY | 2025-03-09 15:34 | XMS_ITS | Continuity of Care Document ---
Author Organization [place] - [facility], [id number] [facility] [address] Address [address] [facility] [address] [place] [address] Assessment Encounter Date Assessment Date Assessment LastModified by Organization Details LastModified Time 01/11/2025 01/11/2025 Complex Ovarian Cyst: - Continue monitoring with ultrasounds - Complete pending lab work once logistical issues are resolved Unexplained Weight Gain: - Discontinue vitamin C supplement to assess impact on symptoms - Monitor weight and symptoms for any further changes Swollen Lymph Nodes: - Observe for changes in size or tenderness - Consider further evaluation if symptoms persist or worsen [email or web address] Not available 01/11/2025 13:08:58 Plan of Treatment Reminders Order Date Submit Date Provider Last Modified By Organization Details Last Modified Time Details Appointments ANNUAL- EST 15 2025 09:00A Isela CALIX MD Not available Not available Not available Lab C-reacti ve protein, quantita tive, serum or plasma 2024 025 [facility], [address], [address], [place], [address], 02/16/2025 06:11:19 estradio l, serum 2024 025 [facility], [address], [address], [place], [address], 02/16/2025 06:11:20 progeste nikole, serum 2024 025 [facility], [address], [address], [place], [address], 02/16/2025 06:11:20 testoste nikole, free + total, serum 2024 025 [facility], [address], [address], [place], [address], 02/16/2025 06:11:19 Referral None recorded . Procedures None recorded . Surgeries None recorded . Imaging None recorded . Medication Orders None recorded . Patient TargetsNo targets recorded. Patient Instructions Encounter Date Encounter Id Patient Instructions Last Modified By Organization Details Last Modified Time 01/11/2025 [id number] - Discontinue vitamin supplement and monitor for symptom changes - Follow up with lab work once available - Monitor weight and report any significant changes - Observe armpit swelling and seek further evaluation if it worsens [email or web address] Not available 01/11/2025 18:33:08 [email or web address] Not available 10/2024 18:33:13 Reason for Referral None Reported. Results Created Date Observation Date Name Description Value Unit Range Abnormal Flag Note LastModifiedBy Organization Detail LastModifiedTime 02/16/2002/18/2025 TESTO STERO NE, FREE, BIOAV AILAB LE AND TOTAL , MS albumin 4.6 g/dL 3.6-5. 1 Not Available [facility] [address], [address], 02/18/2025 17:26:35 02/16/20 25 02/18/2025 TESTO STERO NE, FREE, BIOAV AILAB LE AND TOTAL , MS sex hormone binding globulin 125 nmol/ L 17-124 high Not Available [facility] [address], [address], 02/18/2025 17:26:35 02/16/20 25 02/18/2025 TESTO STERO NE, FREE, BIOAV AILAB LE AND TOTAL , MS testosterone , free 1.2 pg/mL 0.2-5. 0 Not Available [facility] [address], [address], 02/18/2025 17:26:35 02/16/20 25 02/18/2025 TESTO STERO NE, FREE, BIOAV AILAB LE AND TOTAL , MS testosterone ,bioavailabl e 2.5 NG/dL 0.5-8. 5 Not Available [address] [address] [place], [address], 02/18/2025 17:26:35 02/16/20 25 02/18/2025 TESTO STERO NE, FREE, BIOAV AILAB LE AND TOTAL , MS testosterone , total, MS 32 NG/dL 2-45 For addit ional infor tiffany maguire refer to https ://ed ucati on.qu est42matters [employer]. Moxsie/f aq/FA Q165 (This link is being provi ded for infor iliana nal/e ducat ional purpo ses only. ) (Note ) This test was devel oped and its stephanie tical perfo rmanc e erica cteri stics have been deter mined by [employer]. It has not been clear ed or appro kaleigh by the FDA. This assay has been valid ated pursu ant to the CLIA regul ation s and is used for clini moreno purpo ses. F med fusalexey n [address] [facility] [address] [facility] [address] [phone] Iram Garcia MD, PhD Not Available [address] [address] [place], [address], 02/18/2025 17:26:35 02/16/20 25 02/16/2025 C-AIXA CTIVE PROTE IN C-reactive protein <3.0 mg/L <8.0 normal Not Available [address] [address] [place], [address], 02/16/2025 07:12:56 02/16/20 25 02/16/2025 PROGE STERO NE progesterone 5.8 NG/mL normal Refer ence Range s Femal e Folli cular Phase < 1.0 Lutea l Phase 2.6-2 1.5 Post menop ausal < 0.5 Pregn karsten 1st Trime ster 4.1-3 4.0 2nd Trime ster 24.0- 76.0 3rd Trime ster 52.0- 302.0 Not Available [facility] [address] [place], [address], 02/16/2025 06:11:20 02/16/20 25 02/16/2025 ESTRA DIOL estradiol 132 pg/mL normal Refer ence Range Femal e: Folli cular Phase : 30-14 4 Mid-C ycle: 64-35 7 Lutea l Phase : 56-21 4 Postm enopa usal: < or = 31 Refer ence range estab lishe d on post- puber marquise patie nt popul ation . No pre-p ubert al refer ence range estab lishe d using this assay . For any patie nts for whom low Estra diol level s are antic ipate d (e.g. males , pre-p ubert al child jonathan and hypog onada l/pos t-men opaus al femal es), the [facility] Insti tute Estra diol, Ultra sensi tive, LCMSM S assay is recom hermelinda d (orde r code 57229 ). Pleas e note: patie nts being treat ed with the drug fulve stran t (Fasl odex( R)) have demon strat ed signi fican t inter feren ce in immun oassa y metho ds for estra diol measu remen t. The cross react ivity could lead to false ly eleva karina estra diol test resul ts leadi ng to an inapp ropri ate clini moreno asses sment of estro gen statu s. [facility] order code 74139 -Estr adiol , Ultra sensi tive LC/MS /MS demon strat es negli gible cross react ivity with fulve stran t. Not Available [facility] [address] [place], [address], 02/16/2025 06:11:20 Result Notes None recorded. Problems Name Problem SNOMED Code Status Onset Date Resolution Date Notes Provider Name and Address Organization Details Recorded Time Cyst of right ovary 7376754696409 9108 Active 2024 EVELIN CALIX MD [address], [place], [address], [facility] 11:44:23 Generalized edema 309516640 Active 2024 MARCO A HALL MD [address] [facility] [address], [place], [address], [facility] 13:06:29 Menopause finding 785641056 Active 2024 MARCO A HALL MD [address] [facility] [address], [place], [address], [facility] 13:06:40 Reduced libido 8586386 Active 2024 MARCO A HALL MD [address] [facility] [address], [place], [address], [facility] 18:33:23 Notes:Has a cyst on her kidn ey that is being monitored since was seen on her back MRI from August 2022. Problem Notes None recorded. Procedures Surgical History Date Name Laterality Status Provider Name and Address Organization Details Recorded Time 02/25/20 24 Date of Last [facility]ammogram [facility] 07/05/2024 14:28:37 03/06/20 23 Date of Last Pap Smear completed Connie Barclay [facility] 07/05/2024 14:27:49 01/27/20 19 laparoscopy completed EVELIN CALIX MD [address], [place], [address], [facility] 07/06/2024 14:26:21 02/05/20 15 introduction of Mirena coil completed Not Available [facility] 08/05/2024 12:23:08 operative procedure on knee completed Connie Barclay [facility] 07/05/2024 14:33:11 intrauterine contraceptive device procedure completed Connie Barclay [facility] 07/05/2024 14:33:35 Unlisted px femur/knee completed Not Available [facility] 08/05/2024 12:23:08 hysterectomy completed [facility] 08/05/2024 12:23:08 removal of Mirena coil completed Not Available [facility] 08/05/2024 12:23:09 [facility] 01/11/2025 12:36:55 Oophorectomy completed Nneka Parrish [facility] 01/11/2025 12:36:55 [facility] 01/11/2025 12:39:53 Imaging Results None recorded. Procedure Notes None recorded. Medical Equipment None Reported. Allergies No known drug allergies Medications Name Sig Start Date Stop Date Status Note LastModified by Organization Details LastModified Time cephalexin 500 mg capsule TAKE 1 CAPSULE BY MOUTH 4 TIMES A DAY FOR 5 DAYS 01/08 completed Not Available Not Available Not Available Nrf2 Activator 200 mg-200 mg-50 mg-30 mg capsule Take by oral route. active Not Available Not Available No t Available Vitals Date Recorded Body height Body mass index (BMI) Body weight Systolic And Diastolic Provider Name and Address Organization Details Last Updated DateTime 01/11/2025 167.64 cm 23.9 kg/m2 14823.67 g 106/53 mm[Hg] Nneka Parrish [facility] 01/11/2025 12:40:53 Social History Question Answer Notes LastModified by Organizat ion Details LastModified Time Tobacco Smoking Status Never Smoker Connie Barclay [facility] 07/05/2024 14:33:05 Do You Have An Advance Directive? No [email or web address] Information not available 01/11/2025 If You Are , What Was Your Level Of Alcohol Consumption Prior To ? None [email or web address] Information not available 01/11/2025 How Many Years Have You Consumed Alcohol? 18 [email or web address] Information not available 01/11/2025 What Is Your Level Of Caffeine Consumption? Moderate [email or web address] Information not available 01/11/2025 What Type Of Diet Are You Following? REGULAR [email or web address] Information not available 01/11/2025 What Is Your Relationship Status? [email or web address] Information not available 07/05/2024 Sex: Female Functional Status Question Answer Note LastModified by Organizat ion Details LastModified Time How many times per week do you consume alcohol? Less than 1 time per week [email or web address] Information not available 07/05/2024 Do you use any illicit or recreational drugs? No [email or web address] Information not available 07/05/2024 Do you or have you ever used any other forms of tobacco or nicotine? No [email or web address] Information not available 07/05/2024 What is your level of alcohol consumption? Occasional [email or web address] Information not available 07/05/2024 Are you currently employed? 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 Family History Relationship Description Onset Age of this Age Resolved Age Notes LastModified by Organization Details LastModified Time Father Alzheimer's disease [email or web address] Not available 2024 12:33:54 Father Dementia [email or web address] Not available 1 12:33:54 Father Heart disease [email or web address] Not available 2024 14:32:16 Father Myocardial infarction [email or web address] Not available 07/06 14:26:02 Mother Fibromyalgia [email or web address] Not availab le 01/11/2025 12:33:54 Mother Malignant neoplasm of ovary 44 stage 1C grade 3. Right side size of orange . hyster ectomy /ooph and chemo 1995, chemo. alive and well, hairy cell leukem ia. BRCA neg. [email or web address] Not available 07/06/2024 14:29:33 Mother Fibromyositi s Fibrom yalgia [email or web address] Not available 01/11/2025 12:33:54 Mother Malignant neoplastic disease 44 Cancer Mom - ovaria n stage 1C Grade 3, tumor was on right side and the size of an orange with a liquid cyst around the tumor. Had a total hyster ectomy done in 1995 oophor ectomy and chemo, alive and well but w hairy cell leukem ia. BRCA testin g negati ve. Not available 08/05/2024 13:13:22 Father Blood coagulation disorder 57 Blood Clots after knee replac ement frida Not available 08/05/2024 13:13:23 Medical History Condition Response No diseases or conditions Y Cancer- Genetic screening Gynecological History Statement/Question Response Flow Moderate Date of Last Mammogram 02/25/2024 History of Fibroids N Date of LMP 12/25/2024 Current Control Method: Other History of Recurrent Ovarian Cysts Y Age at first intercourse 17 HPV Vaccine Not Completed Date of Last HPV Test 03/06/2023 Date of Last Cholesterol Screening 03/27 11 History of PCOS N History of Infertility N History of Cervical Dysplasia N History of Vulvar Dysplasia N Duration of Flow (days) 6 Current Control Method Sterilizati on Age at Menarche 9 History of Endometriosis N Frequency of Cycle (Q days) 5 Sexually Active? Y History of Dysmenorrhea N Menses Monthly Y Date of Last Pap Smear 03/06/2023 Sexual Problems? N History of Sexually Transmitted Infectio n N Date of Last Bone Density Obstetrics History GPAL:G 2 P 2 0 0 2 Type Value Multiple Births 0 Full Term 2 Induced 0 Spontaneous 0 Premature 0 Living 2 Ectopics 0 Total 2 Immunizations Vaccine Type Date Status Note Provider Nam e and Address Organization Details Recorded Time Tdap 08/14/2016 [facility] Connie [facility]clay [facility] 07/05/2024 14:26:52 SARS-COV-2 (COVID-19) vaccine, UNSPECIFIED 08/05/2020 [facility] Connie Barclay [facility] 07/05/2024 14:27:13 Past Encounters Encounter ID Performer Location Encounter Start Date Encounter Closed Date Diagnosis/Indication Diagnosis SNOMED-CT Code Diagnosis ICD10 Code Diagnosis IMO Codes Diagnosis Note [id number] MARCO A MAE RD, MD [id number] [facility] [address] [facility] [address] [place] [address] 01/11/2025 12:33:53 01/11/2025 13:08:55 Generalized edema 675014130 R60.1 47895 Menopause finding 037677 006 N95.1 9445985 Reduced libido 3256598 R 68.82 508092 Health Concerns Section Related Observation LastModified by Organization Detai ls LastModified Time None Recorded Concern Status LastModified by Organization Details LastModified Time None Recorded Payers Encounter Date Sequence Insurance Name Policy Number Policy Oseguera Covered Member ID Oseguera Member ID Guarantor Name 01/11/2025 1 [employer] [id number] Felicia Charles [id number] Felicia Charles Notes Date Note Type Note Provider Name and Address Organization Details Recorded Time 01/11/2025 text/html The patient is a 39-year-old female presenting with unexplained weight gain and concerns about a complex ovarian cyst. The patient has a history of a complex ovarian cyst, which has been monitored through ultrasounds and has shown follicles upon further examination. She has been advised to complete lab work, but this has been delayed due to issues with the lab request process. She sees [facility] due to her moms history of ovarian cancer. The patient reports an 8-pound weight gain over two months, which is atypical for her. She has not changed her diet or exercise routine, except for starting a vitamin supplement, which she believes may have caused bloating and inflammation. She has stopped the supplement to see if her symptoms improve. Additionally, the patient has noticed swelling in her armpit, which she suspects is due to swollen lymph nodes or an ingrown hair. The swelling is not particularly painful, but she is concerned about these changes. It is actually better since she stopped her supplements although it is still there. She is concerned about a sensitivity to milk thistle as that is what has caused bloating and swelling in the past. Felicia also reports no libido for the past 2 years although it has been getting worse.Lots more anxiety. - Complex ovarian cyst monitored through ultrasounds MARCO A BARRIOS MD [address] [facility] [address], [place], [address], [place] - [facility] 01/11/2025 18:33:35 OBGyn Episode No OBEpisode recorded.
--- OUTSIDE RECORDS SUMMARY | 2025-03-09 15:34 | XMS_ITS | Data Portability ---
Author Organization [place] [facility], [id number] Address [address] [place] [address] Assessment Encounter Date Assessment Date Assessment LastModified by Organization Details LastModified Time 07/23/2024 07/23/2024 telehealth did not work. we used iphone face time. i pushed ova 1 to portal again and she looked to be sure is present. she's also going to post her mom's genetic test to portal in h er chart. [email or web address] Not available 07/23/2024 11:45:41 01/11/2025 01/11/2025 Complex Ovarian Cyst: - Continue [...] quantita tive, serum or plasma 2024 025 [facility], [address] [facility], [facility] [address], [place], [address], 02/16/2025 06:11:19 estradio l, serum 2024 025 [facility], [address], [address], [place], [address], 02/16/2025 06:11:20 progeste nikole, serum 2024 025 [facility], [address], [address], [place], [address], 02/16/2025 06:11:20 testoste nikole, free + total, serum 2024 025 [facility], [address], [address], [place], [address], 02/16/2025 06:11:19 CBC w/ auto diff 2024 025 [email or web address] Not available 07/08/2024 18:29:56 CMP, serum or plasma 2024 025 [email or web address] Not available 07/08/2024 18:29:57 lipid panel, serum 2024 025 [email or web address] Not available 07/08/2024 18:29:57 HbA1c (hemoglo bin A1c), blood 2024 025 [email or web address] Not available 07/08/2024 18:29:57 TSH, serum, reflex free T4 2024 025 [email or web address] Not available 07/08/2024 18:29:57 vitamin D, 25-hydro xy, total, serum 2024 025 [email or web address] Not available 07/08/2024 18:29:57 vitamin B12, serum 2024 025 [email or web address] Not available 07/06/2024 16:17:11 Referral None recorded . Procedures None recorded . Surgeries None recorded . Imaging US, pelvis 2024 025 fly Not available 08/26/2024 09:28:19 US, transvag inal 2024 025 [email or web address] Not available 08/26/2024 09:28:19 US, pelvis 2024 025 Not available 07/15/2024 12:34:36 US, transvag inal 2024 025 Not available 07/15/2024 12:34:37 MAMMO, screenin g, tomosynt hesis, bilatera l 2024 0[address] [facility] [address] Safety Engineer Natalie [address] , [place], [address], 07/21/2024 12:39:50 Medication Orders None recorded . Patient TargetsNo targets recorded. Patient Instructions Encounter Date Encounter Id Patient Instructions Last Modified By Organization Details Last Modified Time 01/11/2025 [id number] - Discontinue vitamin supplement and monitor for [...] albumin 4.6 g/dL 3.6-5. 1 Not Available [facility] [place] [address] [place], [address], 02/18/2025 17:26:35 02/16/20 25 02/18/2025 TESTO STERO NE, FREE, BIOAV AILAB LE AND TOTAL , MS sex hormone binding globulin 125 nmol/ L 17-124 high Not Available [facility] [address] [place], [address], 02/18/2025 17:26:35 02/16/20 25 02/18/2025 TESTO STERO NE, FREE, BIOAV AILAB LE AND TOTAL , MS testosterone , free 1.2 pg/mL 0.2-5. 0 Not Available [facility] [place] [address] [place], [address], 02/18/2025 17:26:35 02/16/20 25 02/18/2025 TESTO STERO NE, FREE, BIOAV AILAB LE AND TOTAL , MS testosterone ,bioavailabl e 2.5 NG/dL 0.5-8. 5 Not Available [facility] [place] [address] [place], [address], 02/18/2025 17:26:35 02/16/2002/18/2025 TESTO STERO NE, FREE, BIOAV AILAB LE AND TOTAL , MS testosterone , total, MS 32 NG/dL 2-45 For addit ional infor tiffany maguire refer to https ://ed ucati on.qu estGoLocal24. com/f aq/FA Q165 (This link is being provi ded for infor matalexey nal/e ducat ional purpo ses only. ) (Note ) This test was devel oped and its stephanie tical perfo rmanc e erica cteri stics have been deter mined by [employer]. It has not been clear ed or appro kaleigh by the FDA. This assay has been valid ated pursu ant to the CLIA regul ation s and is used for clini moreno purpo ses. F med fusio n [address] [facility] [address] [facility] [address] [phone] Iram Garcia MD, PhD Not Available [facility] [address] [place], [address], 02/18/2025 17:26:35 02/16/2002/16/2025 C-AIXA CTIVE PROTE IN C-reactive protein <3.0 mg/L <8.0 normal Not Available [facility] [place] [address] [place], [address], 02/16/2025 07:12:56 02/16/20 25 02/16/2025 PROGE STERO NE progesterone 5.8 NG/mL normal Refer ence Range s Femal e Folli cular Phase < 1.0 Lutea l Phase 2.6-2 1.5 Post menop ausal < 0.5 Pregn karsten 1st Trime ster 4.1-3 4.0 2nd Trime ster 24.0- 76.0 3rd Trime ster 52.0- 302.0 Not Available [facility] [address], [place], [address], 02/16/2025 06:11:20 02/16/20 25 02/16/2025 ESTRA DIOL [...] is recom hermelinda d (orde r code 14867 ). Pleas e note: patie nts being [...] s. [facility] order code 53914 -Estr adiol , Ultra sensi tive LC/MS /MS demon strat es negli gible cross react ivity with fulve stran t. Not Available [facility] [address], [place], [address], 02/16/2025 06:11:20 07/16/1907/15/2024 ultra sound image s RAD [email or web address] [facility] [facility] [id number] 07/15/2024 14:30:22 07/17/19 25 07/15/2024 US, trans vagin al No observ ation record ed. [email or web address] Not Available 2024 12:41:23 08/27/19 25 08/26/2024 US, trans vagin al No observ ation record ed. [email or web address] Not Available 2024 11:24:36 09/11/19 25 08/26/2024 ultra sound image s RAD bgelly [facility] [facility] [id number] 09/10/2024 14:42:08 09/11/19 25 08/26/2024 ultra sound image s RAD bgelly [facility] [facility] [id number] 09/10/2024 14:42:08 Result Notes None recorded. Problems Name Problem SNOMED Code Status Onset Date Resolution Date Notes Provider Name and Address Organization Details Recorded Time Cyst of right ovary 3347490585161 9108 Active 2024 EVELIN CALIX MD [address] [facility] [address], [place], [address], [facility] 5 11:44:23 Generalized edema 480458096 Active 2024 MARCO A HALL MD [address] [facility] [facility] [address], [place], [address], [facility] 5 13:06:29 Menopause finding 798754577 Active 2024 MARCO A HALL MD [address] [facility] [facility] [address], [place], [address], [facility] 5 13:06:40 Reduced libido 5139148 Active 2024 MARCO A HALL MD [address] [facility] [address], [place], [address], [facility] 18:33:23 Notes:Has a cyst on her kidn ey that is being monitored since was seen on her back MRI from August 2022. Problem Notes None recorded. Procedures Surgical History Date Name Laterality Status Provider Name and Address Organization Details Recorded Time 02/25/20 24 Date of Last Mammogram completed [facility] 07/05/2024 14:28:37 03/06/20 23 Date of Last Pap Smear completed [facility] 07/05/2024 14:27:49 01/27/20 19 laparoscopy completed EVELIN CALIX MD [address] [facility] [address], [place], [address], [facility] 07/06/2024 14:26:21 02/05/20 15 introduction of Mirena coil completed Not Available Replaced by [facility] 08/05/2024 12:23:08 operative procedure on knee completed [facility] 07/05/2024 14:33:11 intrauterine contraceptive device procedure completed [facility] 07/05/2024 14:33:35 Unlisted px femur/knee completed Not Available Replaced by [facility] 08/05/2024 12:23:08 hysterectomy completed Not Available [facility] 08/05/2024 12:23:08 removal of Mirena coil completed Not Available Replaced by [facility] 08/05/2024 12:23:09 Orthopedic Surgery completed Nneka Parrish [facility] 01/11/2025 12:36:55 Oophorectomy completed Nneka Parrish [facility] 01/11/2025 12:36:55 Other completed Nneka Parrish [facility] 01/11/2025 12:39:53 Imaging Results None recorded. [...] No t Available Vitals Date Recorded Body weight Body mass index (BMI) Body height Systolic And Diastolic Provider Name and Address Organization Details Last Updated DateTime 07/06/2024 58939.34 g 2714.6 kg/m2 15.24 cm 104/64 mm[Hg] Selena Guzman (TERMED) [facility] 07/06/2024 14:25:55 Date Recorded Body height Provider Name an d Address Organization Details Last Updated DateTime 07/23/2024 15.24 cm EVELIN Amin [address] [facility] [address], [place], [address], [facility] 07/23/2024 11:30:58 Date Recorded Body height Body mass index (BMI) Body weight Systolic And Diastolic Provider Name and Address Organization Details Last Updated DateTime 01/11/2025 167.64 cm 23.9 kg/m2 86634.67 g 106/53 mm[Hg] Nneka Parrish [facility] 01/11/2025 12:40:53 Social History Question Answer Notes LastModified by [employer] Details LastModified Time Tobacco Smoking Status Never Smoker Connie best [facility] 07/05/2024 14:33:05 Do You Have An Advance Directive? No Information not available 01/11/2025 If You Are , What Was Your Level Of Alcohol Consumption Prior To ? None [email or web address] Information not available 01/11/2025 How Many Years Have You Consumed Alcohol? 18 [email or web address] Information not available 01/11/2025 What Is Your Level Of Caffeine Consumption? Moderate [email or web address] Information not available 01/11/2025 What Type Of Diet Are You Following? REGULAR [email or web address] Information not available 01/11/2025 What Is Your Relationship Status? [email or web address] Information not available 07/05/2024 Sex: Female Functional Status Question Answer Note LastModified by [employer] Details LastModified Time How many times per week do you consume alcohol? Less than 1 time per week [email or web address] Information not available 07/05/2024 Do you use any illicit or recreational drugs? No [email or web address] Information not available 07/05/2024 Do you or have you ever used any other forms of tobacco or nicotine? No [email or web address] Information not available 07/05/2024 What is your level of alcohol consumption? Occasional Information not available 07/05/2024 Are you currently employed? 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 Family History Relationship Description Onset Age of this Age Resolved Age Notes LastModified by Organization Details LastModified Time Father Alzheimer's disease [email or web address] Not available 2024 12:33:54 Father Dementia [email or web address] Not available 1 12:33:54 Father Heart disease [email or web address] Not available 2024 14:32:16 Father Myocardial infarction [email or web address] Not available 07/06 14:26:02 Mother Fibromyalgia [email or web address] [...] 56 Blood Clots after knee replac ement [email or web address] Not available 08/05/2024 13:13:23 Medical History Condition [...] Address Organization Details Recorded Time Tdap 08/14/2016 completed Connie Barclay [facility] 07/05/2024 14:26:52 SARS-COV-2 (COVID-19) vaccine, UNSPECIFIED 08/05/2020 completed Connie Barclay [facility] 07/05/2024 14:27:13 Past Encounters Encounter ID Performer Location Encounter Start Date Encounter Closed Date Diagnosis/Indication Diagnosis SNOMED-CT Code Diagnosis ICD10 Code Diagnosis IMO Codes Diagnosis Note [id number] EVELIN CALIX MD [id number] [facility] [address] [place] [address] 07/06/2024 14:18:30 07/06/2024 14:48:44 Screening mammography 67670353 Z12.31 Gynecologi c examination 76835143 Z01.419 Endocrine/ metabolic screening 196203307 Z13.562 [id number] EVELIN CALIX MD [id number] [facility] [address] [place] [address] 07/15/2024 12:04:16 07/15/2024 12:34:36 Left lower quadrant pain 187037822 R10.32 [id number] EVELIN CALIX MD [id number] [facility] [address] [place] [address] 07/23/2024 11:22:21 07/23/2024 12:06:01 Cyst of right ovary 1068799307 9952963 N83.201 736072 she'll do US w [facility] tech 6w after the last one. she'll call to schedule. [id number] EVELIN CALIX MD [id number] [address] [facility] [address] [place] [address] 08/26/2024 08:58:12 08/26/2024 09:28:19 Cyst of right ovary 7287865461 0795555 N83.[id number] MAR[address] A MAE RD, MD [id number] [facility] [address] [place] [address] 01/11/2025 12:33:53 01/11/2025 13:08:55 Generalized edema 922009902 R60.1 41883 Menopause finding 410907 006 N95.1 6554968 Reduced libido 5547136 R 68.82 798783 Health Concerns Section Related Observation LastModified by Organization Detai ls LastModified Time None Recorded Concern Status LastModified by Organization Details LastModified Time None Recorded Advance Directives Directive N: Payers Insurance Date Sequence Insurance Name Policy Number Policy Oseguera Covered Member ID Oseguera Member ID Guarantor Name 01/18/2025 1 SANTA [id number] Felicia Charles [id number] Felicia Charles Notes Date Note Type Note Provider Name and Address Organization Details Recorded Time 5 text/html Annual MATERIAL CHECKER - McwhcReported by PatientGenitourinary symptomsFor menstrual cycle, patient reportsnormal menses. For urinary symptoms, patient reportsno hematuriaandno incontinence. For vulvar complaints, patient reportsnone. For vaginal complaints, patient reportsnone. For gastrointestinal symptoms, patient reportsno gastrointestinal symptoms.Breast symptomsFor breast, patient reportsno breast pain,no breast lump, andno nipple discharge.Endocrine symptomsFor sexual complaints, patient reportsno sexual complaints,no pain during intercourse/sexual function, andnormal libido. For menopausal symptoms, patient reportsno menopausal symptomsandnormal vaginal lubrication.Psychological symptomsFor psychological symptoms, patient reportsno depression,no anxiety, andno pmdd. vaginal discharge like eggwhite btw cycles. no dyspareunia, and otherwise feeling fine. requested routine labwork, printed, MZ printed for her EVELIN CALIX MD [address], [place], [address], [facility] 07/06/2024 14:45:50 5 text/html maternal hx ov cancer, and pt had L serous cystadenoma in past. coincidental findings on liver, kidney, and ovary fall 2022. had 1.4cm RIGHT ov cyst 04/2023. no remaining fallopian tubes. but still c/o lots of clear vaginal dsicharge. recent LEFT lower quadrant pain, and US w slightly dilated L adnexal vessels, and now 1.7cm RIGHT cyst w debris and nearby free fluid. NL ova-1. pt very anxious about findings and requested urgent telehealth and to try to connect too. he has an android though. no prior gyne onc consult, pt declined since her mom had BRCA 1 and 2 negative (83 genes negative otherwise, too) , mom saw [facility]. LLQ pain is gone. only lasted 4d, and was not menstrual cramps. has been googling all the findings. we agreed, plan rpt US 6w after last one, and [facility] gyne onc. can cancel that if cyst resolves. pt agrees. and asked if can be biopsied, would defer to gyne onc. pt recalls the pain felt like a ruptured cyst! maybe yes! over 20min viist.pt has recently done a marcio cleanse. YES that can cause the LLQ pain. EVELIN CALIX MD [address], [place], [address], [facility] 07/23/2024 11:52:14 5 text/html The patient is a 39-year-old female [...] with the lab request process. She sees [facility] due to her moms history of [...] through ultrasounds MARCO A BARRIOS MD [address] [facility] [address], [place], [address] 01/11/2025 18:33:35 OBGyn Episode Ob Episode Information Episode Created Date Number of Fetuses Patient Bloodtype Patient rh Status Prepregnancy Weight lbs Domestic Partner Domestic Partner Phone Father Name Interface Control Officer Status 08/20/19 25 1 CLOSED Fetus Data First Name Last Name Admitted to NICU Weight (g) Sex Living Outcome Pediatric Complications Fetus ID Race Codes Race Delivery Type M [id number] Vaginal Mainor Calculation Initial Mainor Date Initial Exam Date Initial Exam Provider Initial Ultrasound Date Last Menstrual Period Date Ultra Sound Weeks Gestation 0 Eighteen To Twenty Week Mainor Update Ultra Sound Date Fundal Height At Umbil Quickening Date Ultra Sound Latest Weeks Gestation Final Mainor Confirmed By Final Mainor Confirmed Date Final Mainor Date Ultra Sound Latest Days Gestation 0 0 Menstrual History Last Menstrual Date Menses Monthly On Bcp Conception Prior Menses Frequency Hcg Plus Date Menarche Onset Age Delivery Information Delivery Date Delivery Type Labor Anesthesia Weeks Gestation Incision Type Labor Labor Length Hrs Delivered By Post Complications Tubal Sterilization Discharge Date Comments 7 [facility]-Ep idural 39 [facility], Jcarlos fetus_1_w eight_lbs : '10-2'; Discharge Information Feeding Method Contraceptive Method Maternal HG B and HCT Levels Ob Episode Information Episode Created Date Number of Fetuses Patient Bloodtype Patient rh Status Prepregnancy Weight lbs Domestic Partner Domestic Partner Phone Father Name Interface Control Officer Status 08/20/19 25 1 CLOSED Fetus Data First Name Last Name Admitted to NICU Weight (g) Sex Living Outcome Pediatric Complications Fetus ID Race Codes Race Delivery Type M [id number] Vaginal Mainor Calculation Initial Mainor Date Initial Exam Date Initial Exam Provider Initial Ultrasound Date Last Menstrual Period Date Ultra Sound Weeks Gestation 0 Eighteen To Twenty Week Mainor Update Ultra Sound Date Fundal Height At Umbil Quickening Date Ultra Sound Latest Weeks Gestation Final Mainor Confirmed By Final Mainor Confirmed Date Final Mainor Date Ultra Sound Latest Days Gestation 0 0 Menstrual History Last Menstrual Date Menses Monthly On Bcp Conception Prior Menses Frequency Hcg Plus Date Menarche Onset Age Delivery Information Delivery Date Delivery Type Labor Anesthesia Weeks Gestation Incision Type Labor Labor Length Hrs Delivered By Post Complications Tubal Sterilization Discharge Date Comments 5 40 BMG, Rigo fetus_1_w eight_lbs : '7mcm0ou' ; Discharge Information Feeding Method Contraceptive Method Maternal HG B and HCT Levels
== END 2025-03-09 14:17 | disposition home or self-care (01) ==
LOC: CHSIMG 14:17
PROVIDERS: Visit Provider Obstetrics & Gynecology
DX: Z12.31 Encounter for screening mammogram for malignant neoplasm of breast (principal)
CPT/HCPCS: 77063; 77067